=== PATIENT | female | born 1970 | race Caucasian/White ===

== ENCOUNTER 2021-08-01 15:20 | Emergency (ER) | payer MEDICAID, SELFPAY ==
[2021-08-01 15:20] VITALS: BP 131/81; PULSE 78; RESP 18; TEMP 36.9; O2SAT 98; BMI 37.7
--- NOTE | 2021-08-01 15:22 | XR_ITS ---
FINAL REPORT TECHNIQUE: Single view chest CLINICAL HISTORY: CHEST PAIN, shortness of breath. smoker. factor 5 she states. Prior blood clot in heart. FINDINGS: A single view of the chest was obtained. The heart and mediastinum are within normal limits. There is mild bibasilar atelectasis or scarring. The lungs are otherwise clear. There is no pneumothorax. Osseous structures are unremarkable. IMPRESSION: Mild bibasilar atelectasis or scarring. Reviewed, Interpreted and Dictated by Garrison Cabrera III, MD Transcribed by Sneha Kinsey Authenticated by Garrison Cabrera III, MD on 08/01/2021 04:17:46 PM [facility]
--- NOTE | 2021-08-01 15:24 | ECG_ITS ---
APPROVED REPORT Exam: Resting ECG HR:76 bpm ECG Measurements Heart Rate 76 AXES NJ 174 P 59 QRSd 89 QRS 29 QT 401 T 33 QTc 432 Conclusion SINUS RHYTHM NONSPECIFIC T-WAVE ABNORMALITY BORDERLINE ECG UNCONFIRMED REPORT Electronically signed by : Ramirez Zhang MD 08/01/2021 19:45:45
--- NOTE | 2021-08-01 15:55 | CT_ITS ---
PROCEDURE INFORMATION: Exam: CTA Chest With Contrast Exam date and time: 08/01/2021 3:55 PM Age: 50 years old Clinical indication: Other: R/O pe per er Dr granados; Additional info: Pe rule out TECHNIQUE: Imaging protocol: Computed tomographic angiography of the chest with contrast. 3D rendering (Not supervised by radiologist): MIP and/or 3D reconstructed images were created by the technologist. Radiation optimization: All CT scans at this facility use at least one of these dose optimization techniques: automated exposure control; mA and/or kV adjustment per patient size (includes targeted exams where dose is matched to clinical indication); or iterative reconstruction. Contrast material: ISOVUE 370; Contrast volume: 70 ml; Contrast route: INTRAVENOUS (IV); COMPARISON: No relevant prior studies available. FINDINGS: Pulmonary arteries: Normal. No pulmonary emboli. Aorta: Unremarkable. No aortic aneurysm. No aortic dissection. Lungs: There is a bleb in the right lower lobe medially measuring 3.6 cm. No pneumonia. Pleural spaces: Unremarkable. No pneumothorax. No pleural effusion. Heart: Unremarkable. No cardiomegaly. No pericardial effusion. Lymph nodes: Unremarkable. No enlarged lymph nodes. Adrenal glands: Bilateral adrenal adenomas on the right measuring 2.7 cm. Bones/joints: Unremarkable. No acute fracture. Soft tissues: Unremarkable. IMPRESSION: No acute findings.
[2021-08-01 16:03] LABS: Basophils # 0.1 K/mm3 (0-0.2); Basophils % 1.2 % (0.1-2.0); Eosinophils # 0.1 K/mm3 (0.0-0.4); Eosinophils % 1.1 % (0.1-12.0); Hematocrit 39.7 % (37.0-47.0); Hemoglobin 12.3 g/dL (12.2-16.2); Lymphocytes # 3.7 K/mm3 (0.7-4.5); Lymphocytes % 31.4 % (10-50); Mean Corpuscular HGB Conc 31.1 g/dL (31.8-35.4); Mean Corpuscular Hemoglobin 29.4 pg (27.0-31.2); Mean Corpuscular Volume 94.6 fl (81-99); Mean Platelet Volume 8.2 fl (7.4-10.4); Monocytes # 0.7 K/mm3 (0.1-1.0); Monocytes % 5.8 % (1.7-9.3); Neutrophils % 60.6 % (37.0-80.0); Platelet Count 322 K/mm3 (142-424); Red Cell Distribution Width 14.7 % (11.5-17.5); White Blood Count 11.6 K/mm3 (4.8-10.8)
--- NOTE | 2021-08-01 16:04 | CA_ITS ---
FINAL REPORT TECHNIQUE: Multiple sonographic images of the left lower extremity venous structures were performed using grayscale, color, duplex Doppler imaging with spectral analysis. CLINICAL HISTORY: OFF XARELTO X1 WEEK , PAIN IN left lower extremity. Patient denies trauma. FINDINGS: The common femoral vein and the saphenofemoral junction are patent with normal compression and flow. The femoral vein, popliteal vein, and tibial veins demonstrate normal compression and flow. There is no echogenic thrombus identified. The superficial greater saphenous vein is patent with normal compression and flow. IMPRESSION: No evidence of left lower extremity deep or superficial venous thrombosis. Authenticated by Gurjit Martin MD on 08/02/2021 05:43:42 AM [facility]
[2021-08-01 16:07] LABS: Chloride 105 mmol/L (98-107); Sodium 137 mmol/L (136-145)
[2021-08-01 16:10] LABS: Blood Urea Nitrogen 14 mg/dl (7-17); Creatinine Clearance Estimated 164 mL/min (50-200); Estimated Glomerular Filt Rate 88 ml/min (>60); GFR (African American) 107 ML/MIN (>60)
[2021-08-01 16:11] LABS: Calcium 8.4 mg/dl (8.4-10.2); Carbon Dioxide 27 mmol/L (22.0-30.0); Glucose 71 mg/dl (74-100)
[2021-08-01 16:20] VITALS: BP 128/78; PULSE 66; RESP 18; O2SAT 100
[2021-08-01 16:22] VITALS: BP 128/78; PULSE 62; RESP 18; O2SAT 97
[2021-08-01 16:24] LABS: Troponin I < 0.01 ng/ml (0.00-0.034)
--- NOTE | 2021-08-01 16:55 | PC.NURSE ---
pt returned from ct iv infiltrated, iv d/elena, ice pack applied
--- NOTE | 2021-08-01 17:24 | ECG_ITS ---
APPROVED REPORT Exam: Resting ECG HR:59 bpm ECG Measurements Heart Rate 59 AXES SD 180 P 67 QRSd 89 QRS 45 QT 449 T 52 QTc 448 Conclusion SINUS BRADYCARDIA BORDERLINE ECG UNCONFIRMED REPORT Electronically signed by : Ramirez Zhang MD 08/01/2021 19:45:10
--- NOTE | 2021-08-01 17:52 | HMH.EDCP ---
ED Disposition Clinical Impression: Atypical chest pain Disposition: Home, Self-Care Condition on Discharge: Good Instructions: DI for Atypical Chest Pain Additional Instructions: Please follow up with your primary care physician in 2-3 days for further management. You have been referred to a new primary care team as well. Please return to the ED if your symptoms return. Please continue to take your xarelto as prescribed. Referrals: Jorje Adames [Primary Care Provider] - Lisa Ball APRN [Referring] - - Critical Care Critical Care Time: No Attestation: On 08/01/21, the high probability of a clinically significant, sudden or life threatening deterioration of the following system(s) required my full and direct attention, intervention and personal management. The time I documented below is in addition to time spent performing reported procedures but includes the following listed in this critical care notation. Medical Decision Making - Medical Records Medical records reviewed: Yes: I reviewed the patient's medical records. - [facility] Inquiry Pt receiving controlled substance: No Vital Signs: 08/01/21 15:20 08/01/21 16:20 08/01/21 16:22 Temperature 98.5 F Temperature Source Oral Pulse Rate 66 62 Pulse Rate [Radial] 78 Respiratory Rate 18 18 18 Blood Pressure 128/78 128/78 Blood Pressure [Right Arm] 131/81 Blood Pressure Mean 94 Blood Pressure Mean [Right Arm] 97 Blood Pressure Source Automatic Cuff Blood Pressure Position Supine Blood Pressure Position [Right Arm] Sitting 02 Sat by Pulse Oximetry 98 100 97 Oxygen Delivery Method Room Air Room Air 08/01/21 19:36 Temperature 98.5 F Temperature Source Oral Pulse Rate 61 Pulse Rate [Radial] Respiratory Rate 18 Blood Pressure 127/73 Blood Pressure [Right Arm] Blood Pressure Mean Blood Pressure Mean [Right Arm] Blood Pressure Source Blood Pressure Position Blood Pressure Position [Right Arm] 02 Sat by Pulse Oximetry Oxygen Delivery Method - Lab Data Lab results reviewed: Yes: I reviewed the patient's lab results. Lab Results 08/01/21 15:53: WBC 11.6 H, RBC 4.20, Hgb 12.3, Hct 39.7, MCV 94.6, MCH 29.4, MCHC 31.1 L, RDW 14.7, Plt Count 322, MPV 8.2, Neut % (Auto) 60.6, Lymph % (Auto) 31.4, [place] % (Auto) 5.8, Eos % (Auto) 1.1, Baso % (Auto) 1.2, Neut # (Auto) 7.0, Lymph # (Auto) 3.7, [place] # (Auto) 0.7, Eos # (Auto) 0.1, Baso # (Auto) 0.1 08/01/21 15:53: Sodium 137, Potassium 4.0, Chloride 105, Carbon Dioxide 27, Anion Gap 9.0, BUN 14, Creatinine 0.70, Estimated Creat Clear 164, Estimated GFR 88, Est GFR ( Amer) 107, Glucose 71 L, Calcium 8.4, Troponin I < 0.01 Result diagrams: 08/01/21 15:53 08/01/21 15:53 Orders (Tests/Meds): ED MEDICATIONS Discontinued Medications Generic Name Dose Route Start Last Admin Trade Name Freq PRN Reason Stop Dose Admin Iopamidol 50 ml 08/01/21 16:44 08/01/21 16:46 Iopamidol-370 (76%); 50ml Vial IV 08/01/21 16:45 50 ml ONCE ONE Administration Iopamidol 70 ml 08/01/21 18:26 08/01/21 18:28 Iopamidol-370 (76%);100ml Bottle IV 08/01/21 18:27 70 ml ONCE ONE Administration Sodium Chloride 10 ml 08/01/21 16:44 08/01/21 16:46 Sodium Chloride 0.9% 10ml Syr (Rad Only) IV 08/01/21 16:45 10 ml ONCE ONE Administration Sodium Chloride 40 ml 08/01/21 18:26 08/01/21 18:28 0.9% Sodium Chloride 20ml Vial IV 08/01/21 18:27 40 ml ONCE ONE Administration Sodium Chloride 10 ml 08/01/21 18:26 08/01/21 18:28 Sodium Chloride 0.9% 10ml Syr (Rad Only) IV 08/01/21 18:27 10 ml ONCE ONE Administration Medical Decision Narrative: Miss Torres is a 50 yo female w/ PMH for Factor V Leiden on Xarelto who presents to the ed w/ chest pain and LLE pain. Patient is neurovascuylarly intact and hemodynamically stable on arrival. Physical exam benign.No LE changes or significant swelling/pain. Differentials to consider include: PE, DVT, DC/CAD, pneumonia
--- NOTE | 2021-08-01 17:55 | PC.NURSE ---
NEW IV PLaced a 20g L AC , RADIOLOGY CALLED FOR SCAN
--- NOTE | 2021-08-01 18:33 | PC.NURSE ---
PT REFUSED TO HAVE 2ND TROP DRAWN
[2021-08-01 19:36] VITALS: BP 127/73; PULSE 61; RESP 18; TEMP 36.9; O2SAT 97
== END 2021-08-01 19:43 | disposition home or self-care (01) ==
PROVIDERS: Emergency Provider Student in an Organized Health Care Education/Training Program; PCP Pediatrics
DX: R07.89 Other chest pain (principal); M79.662 Pain in left lower leg; D68.51 Activated protein C resistance; Z79.01 Long term (current) use of anticoagulants; Z88.6 Allergy status to analgesic agent
CPT/HCPCS: 71045; 71275; 80048; 84484; 85025; 93005; 93971; 99285; Q9967

== ENCOUNTER → 2022-02-16 11:53 | Outpatient (CLI) | payer MEDICAID, SELFPAY ==
--- NOTE | 2022-02-16 12:19 | US_ITS ---
FINAL REPORT CLINICAL HISTORY: BULGING VEIN LT HAND FINDINGS: US EXTREMITY, NONVASCULAR, LIMITED, ANATOMIC SPECIFIC Limited sonographic images were obtained of the left hand. At the area of interest corresponding to the abnormality is a 5 mm hypoechoic nodule. This does not appear vascular. This appears to reside in the subcutaneous soft tissues. IMPRESSION: Hypoechoic nodule in the subcutaneous soft tissues. Correlate with clinical presentation. Reviewed, Interpreted and Dictated by Feliberto Ramírez MD Transcribed by Servando Arriola Authenticated and . [facility]
[2022-02-16 12:39] LABS: D-Dimer 0.46 ug/mL (0.0-0.5)
== END ==
PROVIDERS: PCP Nurse Practitioner Family; Visit Provider Nurse Practitioner Family
DX: D68.51 Activated protein C resistance (principal); I86.8 Varicose veins of other specified sites
CPT/HCPCS: 36415; 76882; 85378

== ENCOUNTER 2022-02-28 17:36 | Emergency (ER) | payer MEDICAID, SELFPAY ==
[2022-02-28] VITALS (11 sets, daily range): BP systolic 128–164; BP diastolic 68–108; PULSE 72–96; RESP 13–19; TEMP 36.7; O2SAT 97–99; BMI 39.1
--- NOTE | 2022-02-28 17:34 | ECG_ITS ---
APPROVED REPORT Exam: Resting ECG HR:93 bpm ECG Measurements Heart Rate 93 AXES TX 167 P 44 QRSd 92 QRS 1 QT 358 T 30 QTc 409 Conclusion SINUS RHYTHM MODERATE VOLTAGE CRITERIA FOR LVH, CONSIDER NORMAL VARIANT [MEETS CRITERIA IN ONE OF: R(aVL), S(V1), R(V5), R(V5/V6)+S(V1)] NONSPECIFIC T-WAVE ABNORMALITY BORDERLINE ECG UNCONFIRMED REPORT Electronically signed by : Ramirez Zhang MD 03/04/2022 17:48:03
--- NOTE | 2022-02-28 17:37 | HMH.EDGENADL ---
Discharge Plan Disposition Patient Disposition: Home, Self-Care Condition: Good Clinical Impressions Clinical Impression: Atypical chest pain, Excessive sweating, Acute epigastric pain Discharge ED Provider: Chago Chaves General Adult HPI General Chief complaint: Chest Pain Stated complaint: CHEST PAIN Time Seen by Provider: 02/28/22 17:43 History of Present Illness HPI narrative: Patient states that she has been having sweats for 3 weeks. Also since Sunday she has been having some epigastric discomfort and a sensation of a pounding in her chest. She says that she saw her psychiatrist yesterday who wanted her to come to the emergency department, but she refused. She says that she was told by her psychiatrist that he had started on some medication that could affect her heart. She says that her psychiatrist contacted her primary care provider today at [facility] and her primary care provider contacted her and told her to come to the hospital for an EKG. She believes that an order has been sent here for that to be performed, but says that she was told that if she was not here by 5:00 that she had to come to the emergency department. She was also seen by Dr. Sims in the pulmonary clinic today. She states that he has referred her to cardiology and neurology for an evaluation. She has an appointment with cardiology next week. She states that she has a history of a blood clot going through her heart into her lung and has protein S deficiency. She is anticoagulated with Xarelto and states that she is compliant. She has had a prior heart cath years ago at [facility]. She says that she is supposed to have stress tests yearly but has not had one in some time. She moved here from [place] last November. Currently being seen at [facility] for psychiatry and primary care. She is a smoker. She says she is prediabetic. She says that she has high cholesterol but is not on medications for it. She has hypertension. Family history of congestive heart failure in mother and father. Related Data Home Medications Medication Instructions Recorded Confirmed albuterol sulfate 90 mcg/actuation 1 puff inhalation QID COPD 02/28/22 02/28/22 aerosol inhaler (ProAir HFA) amlodipine 5 mg tablet 5 mg PO DAILY High blood pressure 02/28/22 02/28/22 asenapine maleate 10 mg sublingual 10 mg sublingual Q12H MENTAL 02/28/22 02/28/22 tablet DISORDERS cetirizine 5 mg tablet (Allergy 5 mg PO DAILY PRN ALLERGIES 02/28/22 02/28/22 Relief (cetirizine)) cholecalciferol (vitamin D3) 1,250 1,250 mcg PO WEEKLY Supplement 02/28/22 02/28/22 mcg (50,000 unit) capsule cyclobenzaprine 5 mg tablet 5 mg PO TID PRN Muscle Pain 02/28/22 02/28/22 metformin 500 mg tablet 500 mg PO BID Diabetes 02/28/22 02/28/22 rivaroxaban 20 mg tablet (Xarelto) 20 mg PO DAILY Blood thinner 02/28/22 02/28/22 Previous Rx's Medication Instructions Recorded nicotine (polacrilex) 2 mg gum 2 mg buccal Q2H PRN nicotine 02/28/22 cravings #396 ea Allergies Allergy/AdvReac Type Severity Reaction Status Date / Time No Known Allergies Allergy Verified 02/28/22 20:06 [facility] Medical History (Updated 02/28/22 @ 20:28 by Chago Chaves MD) Abnormal screening computed tomography (CT) of lung Angina of effort Dyspnea on minimal exertion Hilar lymphadenopathy Mediastinal lymphadenopathy Nocturnal hypoxia Smoking greater than 30 pack years Tobacco abuse Surgical History History of bilateral inguinal hernia repair History of delivery History of cholecystectomy History of gastric bypass History of hysterectomy History of tonsillectomy Family History Other Diabetes Hypertension Social History (Updated 02/28/22 @ 19:11 by Italia Salvador RN) Smoking Status: Current every day smoker alcohol intake: never current occupational status: disabled Travel in
--- NOTE | 2022-02-28 18:04 | XR_ITS ---
PROCEDURE INFORMATION: Exam: XR Chest Exam date and time: 02/28/2022 6:03 PM Age: 51 years old Clinical indication: Sternal or substernal pain; Additional info: Chest pain TECHNIQUE: Imaging protocol: Radiologic exam of the chest. Views: 2 views. COMPARISON: CR XR CHEST PORTABLE 08/01/2021 3:25 PM FINDINGS: Lungs: Unremarkable. No consolidation. Pleural spaces: Unremarkable. No pleural effusion. No pneumothorax. Heart/Mediastinum: Unremarkable. No cardiomegaly. Bones/joints: Unremarkable. IMPRESSION: No acute findings.
--- NOTE | 2022-02-28 18:12 | PC.NURSE ---
PT TO RADIOLOGY VIA WHEELCHAIR. NO ACUTE DISTRESS NOTED.
--- NOTE | 2022-02-28 18:14 | PC.NURSE ---
PT RETURNED FROM RADIOLOGY. NO COMPLAINTS VOICED. NO ACUTE DISTRESS NOTED. PT DENIES PAIN AT THIS TIME.
[2022-02-28 18:29] LABS: Chloride 102 mmol/L (98-107); Potassium 3.9 mmoL/L (3.5-5.1); Sodium 140 mmol/L (136-145)
[2022-02-28 18:32] LABS: Alanine Aminotransferase 25 U/L (12-78); Albumin Level 4.4 g/dl (3.5-5.0); Albumin/Globulin Ratio 1.6 (1.1-1.8); Alkaline Phosphatase 89 U/L (38-126); Anion Gap 13.9 mEq/L (5-15); Aspartate Amino Transferase 31 U/L (14-36); Bilirubin,Total < 0.1 mg/dl (0.2-1.3); Blood Urea Nitrogen 17 mg/dl (7-17); Calcium 8.9 mg/dl (8.4-10.2); Carbon Dioxide 28 mmol/L (22.0-30.0); Creatinine Clearance Estimated 168 mL/min (50-200); Estimated Glomerular Filt Rate 88 ml/min (>60); GFR (African American) 106 ML/MIN (>60); Globulin 2.8 g/dL (1.3-3.2); Glucose 110 mg/dl (74-100); Lipase 81 U/L (23-300); Total Protein,Serum 7.2 g/dl (6.3-8.2)
[2022-02-28 18:35] LABS: Basophils # 0.2 K/mm3 (0-0.2); Basophils % 1.8 % (0.1-2.0); Eosinophils # 0.2 K/mm3 (0.0-0.4); Eosinophils % 1.5 % (0.1-12.0); Hematocrit 40.1 % (37.0-47.0); Hemoglobin 12.9 g/dL (12.2-16.2); Lymphocytes # 3.8 K/mm3 (0.7-4.5); Mean Corpuscular HGB Conc 32.2 g/dL (31.8-35.4); Mean Corpuscular Hemoglobin 28.6 pg (27.0-31.2); Mean Platelet Volume 7.8 fl (7.4-10.4); Monocytes # 0.5 K/mm3 (0.1-1.0); Monocytes % 4.8 % (1.7-9.3); Neutrophils # 6.6 K/mm3 (1.8-7.8); Platelet Count 408 K/mm3 (142-424); Red Blood Count 4.51 M/mm3 (4.20-5.40); Red Cell Distribution Width 15.8 % (11.5-17.5); White Blood Count 11.3 K/mm3 (4.8-10.8)
[2022-02-28 18:46] LABS: Troponin I < 0.01 ng/ml (0.00-0.034)
--- NOTE | 2022-02-28 18:47 | PC.NURSE ---
BLANKETS, AND TELEVISION REMOTE GIVEN FOR COMFORT. PT AWARE THAT WE NEED TO COLLECT A URINE SPECIMEN WHEN SHE IS ABLE TO VOID.
--- NOTE | 2022-02-28 19:03 | PC.NURSE ---
URINE COLLECTED AND SENT TO LAB.
[2022-02-28 19:05] LABS: Coronavirus 19, PCR Not Detected (NotDetected); Influenza A, PCR Not Detected (NotDetected); Influenza B, PCR Not Detected (NotDetected); Microscopic, Urine URINE MICROSCOPIC (MICROSCOPIC)
[2022-02-28 19:07] LABS: Appearance,Urine CLEAR (Clear); Bilirubin,Urine Negative (Negative); Blood, Urine Negative (Negative); Color,Urine YELLOW (Yellow); Glucose,Urine (UA) Negative (Negative); Ketones,Urine Negative (Negative); Leukocyte Esterase,Urine Negative (Negative); Nitrate,Urine Negative (Negative); Protein,Urine Negative (Negative); Specific Gravity, Urine 1.015 (1.005-1.030); Urobilinogen,Urine 0.2 EU/dl (0.2)
[2022-02-28 19:30] LABS: Squamous Epithelial Cell,Urine Occasional #/hpf (0-5)
[2022-02-28 19:49] LABS: T4 (Thyroxine) 5.2 ug/dl (5.53-11.0)
--- NOTE | 2022-02-28 20:01 | PC.NURSE ---
dr wade at
[2022-02-28 20:03] LABS: Thyroid Stimulating Hormone 2.19 uIU/mL (0.465-4.68)
[2022-02-28 20:04] LABS: Free Thyroxine Index 1.7 ug/dL (5.93-13.13); Triiodothryronine (T3) Uptake 33 % (23.5-40.5)
--- NOTE | 2022-02-28 20:04 | PC.NURSE ---
DR CONCEPCION SPEAKING WITH LISA FOR POSSIBLE ADMISSION
--- NOTE | 2022-02-28 20:08 | PC.NURSE ---
HOUSE CALLED FOR ADMISSION
--- NOTE | 2022-02-28 20:08 | PC.NURSE ---
HOUSE NOTIFIED OF PLAN TO ADMIT. PT AWARE OF PLAN TO ADMIT.
--- NOTE | 2022-02-28 20:27 | PC.NURSE ---
DR. MCARTHUR REQUEST TO SEND TROPONIN NOW. LAB DRAWN AND SENT.
--- NOTE | 2022-02-28 20:49 | PC.NURSE ---
PT AMBULATING TO BR
[2022-02-28 21:15] LABS: Troponin I < 0.01 ng/ml (0.00-0.034)
== END 2022-02-28 21:57 | disposition home or self-care (01) ==
LOC: ER 20:28 → 2ND 20:37
PROVIDERS: Emergency Provider Emergency Medicine; PCP Pediatrics
DX: R07.89 Other chest pain (principal); Z79.01 Long term (current) use of anticoagulants; Z79.84 Long term (current) use of oral hypoglycemic drugs; Z79.51 Long term (current) use of inhaled steroids; Z79.899 Other long term (current) drug therapy; I10 Essential (primary) hypertension; E11.9 Type 2 diabetes mellitus without complications; Z72.0 Tobacco use; F31.9 Bipolar disorder, unspecified; Z98.84 Bariatric surgery status; F41.9 Anxiety disorder, unspecified; F32.A Depression, unspecified; G47.34 Idiopathic sleep related nonobstructive alveolar hypoventilation
CPT/HCPCS: 71046; 80053; 81001; 83690; 84436; 84443; 84479; 84484; 85025; 93005; 99285; C9803; U0003; U0005

== ENCOUNTER → 2022-03-14 13:38 | Outpatient (CLI) | payer MEDICAID, SELFPAY ==
--- NOTE | 2022-03-14 14:04 | CT_ITS ---
FINAL REPORT TECHNIQUE: Axial images were obtained from the lung apex to the mid abdomen by computed tomography. This study was performed with techniques to keep radiation doses as low as reasonably achievable (ALARA). Individualized dose reduction techniques using automated exposure control or adjustment of mA and/or kV according to the patient's size were employed. CLINICAL HISTORY: lung cancer screening. smoker, 1 ppd x 20 years. occupational exposure to asbestos, diesel fumes and coal smoke. COMPARISON: 08/02/2019 FINDINGS: CHEST CT LOW DOSE CTDI vol (mGy): 2.90 DLP (mGy-cm): 98.84 There is no axillary adenopathy. There is no hilar or mediastinal adenopathy. The heart is normal in size. There is no pericardial or pleural effusion. Lung window images demonstrate no suspicious infiltrate or nodule. There is mild emphysema. Limited images of the upper abdomen reveal bilateral adrenal nodules which are stable, likely represent adenomas. There are postoperative changes in the stomach. There is a focal left posterior medial diaphragmatic hernia containing fat. IMPRESSION: Lung RADS category 1. Recommend 12 month follow-up low-dose chest CT. Reviewed, Interpreted and Dictated by Garrison Cabrera III, MD Transcribed by Enedina Hoffman Authenticated and [facility]
[2022-03-14 15:24] LABS: Ferritin 8.22 ng/ml (11.1-264)
== END ==
PROVIDERS: PCP Family Medicine; Referring Provider Nurse Practitioner Family; Visit Provider Internal Medicine Pulmonary Disease
DX: Z87.891 Personal history of nicotine dependence (principal); Z12.2 Encounter for screening for malignant neoplasm of respiratory organs; E83.10 Disorder of iron metabolism, unspecified; Z86.69 Personal history of other diseases of the nervous system and sense organs; Z98.84 Bariatric surgery status
CPT/HCPCS: 36415; 71271; 82728

== ENCOUNTER → 2022-03-21 08:27 | Outpatient (CLI) | payer MEDICAID, SELFPAY ==
--- NOTE | 2022-03-21 08:38 | XR_ITS ---
FINAL REPORT TECHNIQUE: Bone mineral density was calculated of the lumbar spine and hip. CLINICAL HISTORY: post menopausal FINDINGS: DEXA BONE DENSITY AXIAL SKELETON Using L1-4, the bone mineral density of the spine is 1.226 g/cm2, corresponding to T-score of 1.6. Using the right hip, the bone mineral density of the femoral neck is 0.817 g/cm2, corresponding to a T-score of -0.3. NOTE: T-score: Standard deviation compared with peak bone mass of young adult mean. *Following the recommendations of the International Society of Bone densitometry, classification of hip BMD is based on the lower of two T-scores; total hip or femoral neck. IMPRESSION: Normal bone mineral density of the lumbar spine and hip. Reviewed, Interpreted and Dictated by Garrison Cabrera III, MD Transcribed by Sakina Pisano Authenticated and [facility]
== END ==
PROVIDERS: PCP Family Medicine; Visit Provider Nurse Practitioner Family
DX: Z78.0 Asymptomatic menopausal state (principal); E55.9 Vitamin D deficiency, unspecified; Z90.79 Acquired absence of other genital organ(s); Z13.820 Encounter for screening for osteoporosis; Z79.899 Other long term (current) drug therapy
CPT/HCPCS: 77080

== ENCOUNTER 2022-03-24 18:46 | Emergency (ER) | payer MEDICAID, SELFPAY ==
[2022-03-24 19:12] VITALS: BP 140/92; PULSE 101; RESP 19; TEMP 37.1; O2SAT 98; BMI 39.3
--- NOTE | 2022-03-24 19:35 | EXP.UTC ---
Discharge Plan Disposition Patient Disposition: Home, Self-Care Condition: Good Prescriptions Prescriptions: New doxycycline hyclate 100 mg capsule 100 mg PO BID Qty: 20 0RF No Action cholecalciferol (vitamin D3) 1,250 mcg (50,000 unit) capsule 1,250 mcg PO WEEKLY cetirizine [Allergy Relief (cetirizine)] 5 mg tablet 5 mg PO DAILY PRN (Reason: ALLERGIES) amlodipine 5 mg tablet 5 mg PO DAILY Xarelto 20 mg tablet 20 mg PO DAILY Rx Instructions: must administer with evening meal cyclobenzaprine 5 mg tablet 5 mg PO TID PRN (Reason: Muscle Pain) metformin 500 mg tablet 500 mg PO BID asenapine maleate 10 mg tablet, sublingual 10 mg sublingual Q12H albuterol sulfate [ProAir HFA] 90 mcg/actuation HFA aerosol inhaler 1 puff inhalation QID nicotine (polacrilex) 2 mg gum 2 mg buccal Q2H PRN (Reason: nicotine cravings) Qty: 396 0RF Rx Instructions: Weeks 1 to 6: Chew 1 piece every 2 hours As NEEDED Weeks 7 to 9: Chew 1 piece every 4 hors As NEEDED Weeks 1o to 12: Chew 1 piece every 8 hours As NEEDED cyanocobalamin (vitamin B-12) 1,000 mcg/mL solution 1,000 mcg IM QMONTH alprazolam [Xanax] 0.5 mg tablet 0.5 mg PO HS PRN (Reason: Anxiety) Referrals Follow up/Referrals: Cornelio Hernández MD [Primary Care Provider] - See instructions Puneet Burton MD [Physician] - See instructions Activity Restrictions/Add. Instructions Additional Instructions/Restrictions: *Monitor Temp, Over the counter Motrin or Tylenol as directed/as needed Tylenol every 4 hours and Motrin every 6 hours (as long as your family doctor has told you that you can take it) for fever or pain. and straight to ER if unable to lower temp less than 101.0 after medication given *Warm salt water gargles may help to soothe the throat *Throat Lozenges? *Warm fluids like tea with honey may help to soothe the throat? *Sleep elevated *Humidifier/Vaporizer Follow up with ENT if you continued to have issues with your Sinuses Follow up IMMEDIATELY for new or worsening symptoms or no Noticeable improvement over the next 48-72 hours. 911 for difficulty breathing or swallowing Clinical Impressions Clinical Impression: Sinusitis Instructions Patient Instructions: DI for Sinusitis, Sinusitis Discharge ED Provider: Jenny Rivera [facility] HPI General Stated complaint: SOA,wheezing,BEACH,Drainage Mode of Arrival: Ambulatory Source of Information: Patient Limitations: No Limitations Time Seen by Provider: 03/24/22 19:35 Description of Symptoms (Recalled from Triage Doc. by RN): pt comes in with c/o wheezing, dry cough, sore throat, shortness of breath, headaches, sinus pressure, hot sweats. pts symptoms have been ongoing for 2 months. HEENT Symptoms (Recalled from RN notes): Yes Resp Symptoms (Recalled from RN notes): Yes Skin Symptoms (Recalled from RN notes): No MS Symptoms (Recalled from RN notes): No Functional Status (Recalled from RN notes): n/a History of Present Illness Provider Complaint: Patient states that she has been having issues on and off for 2 mths States that she has been having SOA and hot flashes, wheezing on and off, sore throat on and off and dry cough states that for the last week she has been having sinus pain and pressure States that she thinks she may be getting a sinus infection again and wanted to get ahead of it before she started again with the wheezing and SOA State that she has already seen Pulmonology and has appointment with Cardiology but she isnt here for that she is here for the sinus pressure and pain in her left sinuses feels like it is swollen Related Data Home Medications Medication Instructions Recorded Confirmed albuterol sulfate 90 mcg/actuation 1 puff inhalation QID COPD 02/28/22 03/24/22 aerosol inhaler (ProAir HFA) amlodipine 5 mg tablet 5 mg PO DAILY High blood pressure 02/28/22 03/24/22 asenapine maleate 10
[2022-03-24 19:50] VITALS: BP 140/92; PULSE 101; RESP 19; TEMP 37.1
[2022-03-24 21:28] LABS: Adenovirus,PCR Not Detected (NotDetected); Bordetella Pertussis Not Detected (NotDetected); Chlamydophila Pneumoniae, PCR Not Detected (NotDetected); Coronavirus 19, PCR Not Detected (NotDetected); Coronavirus 229E Not Detected (NotDetected); Coronavirus NL63 Not Detected (NotDetected); Coronavirus OC43 Not Detected (NotDetected); Coronovirus HKU1,PCR Not Detected (NotDetected); Human Metapneumovirus Not Detected (NotDetected); Influenza A, PCR Not Detected (NotDetected); Influenza AH1, 2009 Not Detected (NotDetected); Influenza AH1, PCR Not Detected (NotDetected); Influenza AH3,PCR Not Detected (NotDetected); Influenza B, PCR Not Detected (NotDetected); Mycoplasma Pneumoniae, PCR Not Detected (NotDetected); Parainfluenza 1, PCR Not Detected (NotDetected); Parainfluenza 2, PCR Not Detected (NotDetected); Parainfluenza 3, PCR Not Detected (NotDetected); Parainfluenza 4, PCR Not Detected (NotDetected); Respiratory Syncytial Virus Not Detected (NotDetected); Rhinovirus/Enterovirus Not Detected (NotDetected)
== END 2022-03-24 19:55 | disposition home or self-care (01) ==
PROVIDERS: Emergency Provider Nurse Practitioner; PCP Family Medicine
DX: J32.9 Chronic sinusitis, unspecified (principal)
CPT/HCPCS: 87581; 87632; 87798; 99212; C9803; G0463; U0003; U0005

== ENCOUNTER → 2022-03-31 14:25 | Outpatient (CLI) | payer MEDICAID, SELFPAY ==
[2022-03-31 18:52] LABS: Basophils # 0.1 K/mm3 (0-0.2); Basophils % 1.2 % (0.1-2.0); Eosinophils # 0.2 K/mm3 (0.0-0.4); Hematocrit 39.9 % (37.0-47.0); Hemoglobin 12.5 g/dL (12.2-16.2); Lymphocytes # 3.4 K/mm3 (0.7-4.5); Lymphocytes % 31.3 % (10-50); Mean Corpuscular HGB Conc 31.4 g/dL (31.8-35.4); Mean Corpuscular Hemoglobin 28.3 pg (27.0-31.2); Mean Corpuscular Volume 90.1 fl (81-99); Mean Platelet Volume 8.1 fl (7.4-10.4); Monocytes # 0.6 K/mm3 (0.1-1.0); Neutrophils # 6.4 K/mm3 (1.8-7.8); Neutrophils % 59.5 % (37.0-80.0); Platelet Count 385 K/mm3 (142-424); Red Blood Count 4.43 M/mm3 (4.20-5.40); Red Cell Distribution Width 16.3 % (11.5-17.5); White Blood Count 10.7 K/mm3 (4.8-10.8)
[2022-03-31 19:46] LABS: Vitamin B12 533 pg/mL (239-931)
[2022-04-09 18:42] LABS: 1,25 Dihydroxy Vitamin D 53 pg/mL (.); 1,25-Dihydroxy, Vitamin D-2 <10 pg/mL (.); 1,25-Dihydroxy, Vitamin D-3 53 pg/mL (.)
== END ==
PROVIDERS: PCP Family Medicine; Visit Provider Family Medicine
DX: Z98.84 Bariatric surgery status (principal); E66.9 Obesity, unspecified; Z68.41 Body mass index [BMI] 40.0-44.9, adult
CPT/HCPCS: 82607; 82652; 85025

== ENCOUNTER → 2022-05-02 15:40 | Outpatient (CLI) | payer MEDICAID, SELFPAY ==
[2022-05-02 18:50] LABS: Adenovirus,PCR Not Detected (NotDetected); Bordetella Pertussis Not Detected (NotDetected); Chlamydophila Pneumoniae, PCR Not Detected (NotDetected); Coronavirus 19, PCR Not Detected (NotDetected); Coronavirus 229E Not Detected (NotDetected); Coronavirus NL63 Not Detected (NotDetected); Coronavirus OC43 Not Detected (NotDetected); Coronovirus HKU1,PCR Not Detected (NotDetected); Human Metapneumovirus Not Detected (NotDetected); Influenza A, PCR Not Detected (NotDetected); Influenza AH1, 2009 Not Detected (NotDetected); Influenza AH1, PCR Not Detected (NotDetected); Influenza AH3,PCR Not Detected (NotDetected); Influenza B, PCR Not Detected (NotDetected); Mycoplasma Pneumoniae, PCR Not Detected (NotDetected); Parainfluenza 1, PCR Not Detected (NotDetected); Parainfluenza 2, PCR Not Detected (NotDetected); Parainfluenza 3, PCR Not Detected (NotDetected); Parainfluenza 4, PCR Not Detected (NotDetected); Respiratory Syncytial Virus Not Detected (NotDetected); Rhinovirus/Enterovirus Not Detected (NotDetected)
[2022-05-02 19:06] LABS: Basophils # 0.2 K/mm3 (0-0.2); Basophils % 1.2 % (0.1-2.0); Eosinophils # 0.2 K/mm3 (0.0-0.4); Eosinophils % 1.5 % (0.1-12.0); Hematocrit 40.3 % (37.0-47.0); Hemoglobin 13.1 g/dL (12.2-16.2); Lymphocytes # 4.1 K/mm3 (0.7-4.5); Lymphocytes % 34.3 % (10-50); Mean Corpuscular HGB Conc 32.5 g/dL (31.8-35.4); Mean Corpuscular Hemoglobin 28.9 pg (27.0-31.2); Mean Corpuscular Volume 88.7 fl (81-99); Mean Platelet Volume 8.3 fl (7.4-10.4); Monocytes # 0.6 K/mm3 (0.1-1.0); Neutrophils % 57.8 % (37.0-80.0); Platelet Count 453 K/mm3 (142-424); Red Blood Count 4.55 M/mm3 (4.20-5.40); Red Cell Distribution Width 15.1 % (11.5-17.5)
== END ==
PROVIDERS: PCP Family Medicine; Visit Provider Family Medicine
DX: R05.9 Cough, unspecified (principal)
CPT/HCPCS: 85025; 87581; 87632; 87798; C9803; U0003; U0005

== ENCOUNTER → 2022-05-15 14:52 | Outpatient (CLI) | payer MEDICAID, SELFPAY ==
[2022-05-15 16:49] LABS: Alanine Aminotransferase 21 U/L (12-78); Alkaline Phosphatase 89 U/L (38-126); Aspartate Amino Transferase 23 U/L (14-36); Bilirubin,Direct 0.1 mg/dl (0.0-0.4); Bilirubin,Indirect 0.1 mg/dL (0.0-0.9); Bilirubin,Total 0.2 mg/dl (0.2-1.3); Bilirubin,Unconjugated 0.1 mg/dL (0.0-1.1); Chol/HDL Ratio 5.9 (1-3.5); Cholesterol 232 mg/dl (140-200); HDL Cholesterol 39 mg/dl (40-60); Total Protein,Serum 6.6 g/dl (6.3-8.2); Triglycerides 368 mg/dl (30-150); VLDL Cholesterol 74 mg/dL (0-40)
[2022-05-15 17:00] LABS: Direct LDL Cholesterol 141.93 mg/dL (100-129)
== END ==
PROVIDERS: PCP Family Medicine; Referring Provider Internal Medicine Pulmonary Disease; Visit Provider Nurse Practitioner
DX: I11.9 Hypertensive heart disease without heart failure (principal); E11.9 Type 2 diabetes mellitus without complications; R06.02 Shortness of breath
CPT/HCPCS: 36415; 80061; 80076

== ENCOUNTER → 2022-05-16 12:35 | Outpatient (CLI) | payer MEDICAID, SELFPAY ==
[2022-05-16 13:35] VITALS: PULSE 86; PULSE 89
== END ==
PROVIDERS: PCP Family Medicine; Visit Provider Internal Medicine Pulmonary Disease
DX: R06.09 Other forms of dyspnea (principal)
CPT/HCPCS: 94060; 94618; 94640; 94727; 94729; 94762

== ENCOUNTER → 2022-05-25 13:27 | Outpatient (CLI) | payer MEDICAID, SELFPAY ==
--- NOTE | 2022-05-25 13:31 | CA_ITS ---
APPROVED REPORT EXAM: Comprehensive 2D, Doppler, and color-flow Echocardiogram Lay Out Inspector: Stephanie Bill, ANNABELLA, RVS Ht: 5 ft 7 in Wt: 256lbs BSA: 2.25 BP: 145/90 mmHg Indications: SOB, Edema, DM, Smoker, HTN 2D Dimensions Aortic Root 2.84 cm F: 2.7 - 3.3 LA Volume 53.60 mL Left Atrium 3.18 cm F: 2.7 - 3.8 LA Volume Index 23.82 mL/m2 (M/F) 16-34 LVOT 2.00 cm (M/F) 1.5-2.5 M-Mode Dimensions RVDd 2.18 cm (0.9-2.6) LA Diam 3.63 cm (1.9-4.0) LVDd 5.54 cm (3.5-5.7) Ao Diam 3.35 cm (2.0-3.7) LVDs 3.64 cm (3.5-5.7) IVSd 0.96 cm (0.6-1.1) PWd 1.29 cm (0.6-1.1) EF (Teich) 62.70% EPSs 0.81 cm FS 34.30% EDV (Teich) 149.90 mL TAPSE 2.04 (<1.7) ESV (Teich) 55.90 mL LV Diastology E Decel Time 177.00 (160-240 msec) E/A Ratio 0.88 MED E' 6.60 (< 7 cm/sec) MED A' 9.20 cm/s E'/MED E' Ratio 10.39 (>14) LAT E' 8.10 (<10 cm/sec) LAT A' 10.50 cm/s E/LAT E' Ratio 8.47 (>14) Aortic Valve LVOT Max 95.00 (70-110 cm/s) LVOT VTI 17.88 cm AoV Peak Anuj. 148.00 (50-130 cm/s) AO Peak GR. 8.80 mmHg AO Mean GR. 4.50 (<5 mmHg) AO VTI 27.77 (18-25 cm) MARIA ALEJANDRA (VTI) 2.02 (2.5-4.5 cm2) Mitral Valve MV A Velocity 78.00 (40-130 cm/s) E/A Ratio 0.88 MV Decel. Time 177.00 (160-240 ms) Pulmonary Valve PV Peak Velocity 100.00 (50-150 cm/s) Left Ventricle Left atrium is mildly enlarged, left ventricle is normal size, mild concentric left ventricular hypertrophy, estimated ejection fraction is 55% with no regional wall motion abnormality, grade 1 diastolic dysfunction seen without tissue Doppler evidence of raise left atrial pressure. Right Ventricle Right atrium and right ventricle are mildly enlarged with normal contractility. Aortic Valve Aortic valve is minimally thickened and fibrosed there is no aortic stenosis or aortic insufficiency. Mitral Valve Mitral valve is grossly normal, there is trace mitral regurgitation. Tricuspid Valve Tricuspid valve grossly normal, there is trace tricuspid regurgitation, tricuspid regurgitation jet velocity is inadequate for calculation of the right ventricular systolic pressure. Pulmonic Valve Pulmonic valve is poorly visualized. Great Vessels Aortic root is normal size. Inferior vena cava is poorly visualized. Pericardium No significant pericardial effusion noted. Conclusion 1. Mild biatrial enlargement, normal left ventricular size, mild concentric left ventricular hypertrophy, estimated ejection fraction 55% with no regional wall motion abnormality, grade 1 diastolic dysfunction seen without tissue Doppler evidence of raise left atrial pressure. 2. Mildly enlarged right ventricle with normal contractility. 3. Trace mitral and tricuspid regurgitation. 4. No significant pericardial effusion noted. 5. Inferior vena cava is poorly visualized. Electronically signed by : Sarabjit Soliman MD 05/26/2022 10:52:36
== END ==
PROVIDERS: PCP Family Medicine; Referring Provider Nurse Practitioner Family; Visit Provider Nurse Practitioner
DX: E83.10 Disorder of iron metabolism, unspecified (principal); F32.A Depression, unspecified; F41.9 Anxiety disorder, unspecified; R06.02 Shortness of breath
CPT/HCPCS: 93306

== ENCOUNTER → 2022-06-07 10:51 | Outpatient (CLI) | payer MEDICAID, SELFPAY | PROVIDERS: PCP Family Medicine; Visit Provider Specialist | DX: G47.34 Idiopathic sleep related nonobstructive alveolar hypoventilation (principal) ==

== ENCOUNTER → 2022-06-26 08:47 | Outpatient (CLI) | payer MEDICAID, SELFPAY ==
[2022-06-26 09:01] VITALS: BMI 44.6
[2022-06-26 09:16] VITALS: BMI 40.7
[2022-06-26 09:32] LABS: Basophils # 0.1 K/mm3 (0-0.2); Basophils % 1.1 % (0.1-2.0); Eosinophils # 0.2 K/mm3 (0.0-0.4); Eosinophils % 1.5 % (0.1-12.0); Hematocrit 41.2 % (37.0-47.0); Hemoglobin 13.1 g/dL (12.2-16.2); Lymphocytes # 3.2 K/mm3 (0.7-4.5); Lymphocytes % 28.1 % (10-50); Mean Corpuscular HGB Conc 31.9 g/dL (31.8-35.4); Mean Corpuscular Volume 87.8 fl (81-99); Mean Platelet Volume 7.9 fl (7.4-10.4); Monocytes # 0.6 K/mm3 (0.1-1.0); Monocytes % 4.9 % (1.7-9.3); Neutrophils # 7.4 K/mm3 (1.8-7.8); Neutrophils % 64.3 % (37.0-80.0); Platelet Count 374 K/mm3 (142-424); Red Cell Distribution Width 14.6 % (11.5-17.5); White Blood Count 11.5 K/mm3 (4.8-10.8)
[2022-06-26 09:35] VITALS: BP 121/54; PULSE 78; RESP 18; TEMP 36.2; O2SAT 94
[2022-06-26 09:35] LABS: Chloride 111 mmol/L (98-107); Sodium 142 mmol/L (136-145)
[2022-06-26 09:36] LABS: Potassium 4.2 mmoL/L (3.5-5.1)
[2022-06-26 09:38] LABS: Alanine Aminotransferase 28 U/L (12-78); Albumin Level 3.8 g/dl (3.5-5.0); Albumin/Globulin Ratio 1.5 (1.1-1.8); Alkaline Phosphatase 68 U/L (38-126); Anion Gap 8.2 mEq/L (5-15); Aspartate Amino Transferase 28 U/L (14-36); Bilirubin,Total 0.3 mg/dl (0.2-1.3); Blood Urea Nitrogen 15 mg/dl (7-17); Carbon Dioxide 27 mmol/L (22.0-30.0); Creatinine Clearance Estimated 204 mL/min (50-200); Estimated Glomerular Filt Rate 105 ml/min (>60); GFR (African American) 127 ML/MIN (>60); Globulin 2.5 g/dL (1.3-3.2); Total Protein,Serum 6.3 g/dl (6.3-8.2)
[2022-06-26 09:39] LABS: Calcium 8.5 mg/dl (8.4-10.2); Glucose 119 mg/dl (74-100)
== END ==
PROVIDERS: PCP Family Medicine; Visit Provider Nurse Practitioner
DX: R06.09 Other forms of dyspnea (principal); R07.9 Chest pain, unspecified
CPT/HCPCS: 75574; 80053; 85025; Q9967

== ENCOUNTER → 2022-07-12 19:54 | Outpatient (CLI) | payer MEDICAID, SELFPAY | PROVIDERS: PCP Family Medicine; Visit Provider Nurse Practitioner Family | DX: G47.33 Obstructive sleep apnea (adult) (pediatric) (principal); R09.02 Hypoxemia; R06.83 Snoring | CPT/HCPCS: 95810 ==

== ENCOUNTER → 2022-07-27 11:32 | Outpatient (CLI) | payer MEDICAID, SELFPAY | PROVIDERS: PCP Family Medicine; Visit Provider Nurse Practitioner Family | DX: E61.1 Iron deficiency (principal); E83.10 Disorder of iron metabolism, unspecified | CPT/HCPCS: 36415; 82728 ==

== ENCOUNTER → 2022-09-29 11:50 | Outpatient (CLI) | payer MEDICAID, SELFPAY | PROVIDERS: PCP Family Medicine; Visit Provider Family Medicine | DX: R30.0 Dysuria (principal); B96.29 Other Escherichia coli [E. coli] as the cause of diseases classified elsewhere | CPT/HCPCS: 87086; 87088; 87186 ==

== ENCOUNTER → 2022-10-06 23:32 | Outpatient (CLI) | payer MEDICAID, SELFPAY ==
[2022-10-06 17:39] LABS: Basophils # 0.1 K/mm3 (0-0.2); Basophils % 0.5 % (0.1-2.0); Eosinophils # 0.2 K/mm3 (0.0-0.4); Eosinophils % 1.7 % (0.1-12.0); Hemoglobin 12.8 g/dL (12.2-16.2); Lymphocytes # 3.5 K/mm3 (0.7-4.5); Lymphocytes % 31.7 % (10-50); Mean Corpuscular HGB Conc 32.7 g/dL (31.8-35.4); Mean Corpuscular Hemoglobin 29.5 pg (27.0-31.2); Mean Corpuscular Volume 90.3 fl (81-99); Mean Platelet Volume 8.4 fl (7.4-10.4); Monocytes # 0.7 K/mm3 (0.1-1.0); Monocytes % 6.4 % (1.7-9.3); Neutrophils # 6.6 K/mm3 (1.8-7.8); Neutrophils % 59.7 % (37.0-80.0); Platelet Count 346 K/mm3 (142-424); Red Blood Count 4.32 M/mm3 (4.20-5.40); Red Cell Distribution Width 14.3 % (11.5-17.5); White Blood Count 11.1 K/mm3 (4.8-10.8)
[2022-10-06 18:03] LABS: Iron 71 ug/dL (37-170)
[2022-10-06 18:13] LABS: Total Iron Binding Capacity 388 ug/dL (265-497)
[2022-10-06 18:40] LABS: Ferritin 30.1 ng/ml (11.1-264)
== END ==
PROVIDERS: PCP Family Medicine; Visit Provider Nurse Practitioner Family
DX: E61.1 Iron deficiency (principal); R53.83 Other fatigue
CPT/HCPCS: 82728; 83540; 83550; 85025